=== PATIENT | female | born 1995 | race Caucasian/White ===

== ENCOUNTER 2021-02-12 15:46 | Emergency (ER) | payer OTHER, SELFPAY ==
[2021-02-12 13:56] VITALS: BMI 27.7
[2021-02-12 15:48] VITALS: BP 110/72; PULSE 100; RESP 16; TEMP 35.8; O2SAT 99; BMI 25.1
--- NOTE | 2021-02-12 16:23 | CT_ITS ---
STUDY: CT ABDOMEN AND PELVIS WITH CONTRAST REASON FOR EXAM: Female, 25 years old. RLQ pain -- IV PO Contrast RADIATION DOSAGE (If Supplied By Facility): CTDIvol = ( 12.6 ) mGy, DLP = ( 830.15 ) mGycm TECHNIQUE: Transaxial images were obtained from the dome of the diaphragm to the symphysis pubis without oral contrast. Oral and amp; IV Gastrografin and amp; 100mL Isovue-300 was administered. Sagittal and coronal images were reconstructed. Individualized dose optimization techniques were used for this CT. COMPARISON: None. FINDINGS: There is a 3 mm peripheral right lower lobe nodule likely a granuloma. The visualized portions of the heart are within normal limits. Normal liver. Status post cholecystectomy. No significant dilatation of the extrahepatic biliary system. Normal spleen. Normal pancreas. Normal bilateral adrenal glands. Normal right kidney. Normal left kidney. Normal visualized stomach. Mild ileus of the small intestine. Normal colon. The appendix is normal. There is right lower quadrant mesenteric adenopathy up to 1.5 cm. Mesenteric thickening is noted in the right lower quadrant around the cecum and proximal ascending colon. Normal abdominal aorta. Normal inferior vena cava. Normal retroperitoneum. Normal urinary bladder. Mild pelvic fluid. Normal abdominal wall. Normal osseous structures. CT/Abdomen/Pelvis WITH Contrast IMPRESSION: Mild ileus of the small intestine. There is right lower quadrant mesenteric adenopathy up to 1.5 cm. Mesenteric thickening is noted in the right lower quadrant around the cecum and proximal ascending colon. No CT evidence of appendicitis. Mild pelvic fluid. Electronically Signed: Derick Torres DO at 18:54 EDT Tel [phone], Service support ,
--- NOTE | 2021-02-12 16:24 | ED.VISSUMM ---
- ER Visit Summary Date of Service: 02/12/21 Chief Complaint: Abdominal pain History of Present Illness: The patient is a 25 F presenting with abdominal pain. Patient states this started approximately 1 week ago. She has had diarrhea 4-6 times per day for the past week. Denies blood in her stool. She denies nausea or vomiting today. She states she did initially have vomiting but that has since resolved. She had fever initially but that has also resolved. She states she had myalgias when she had the fever but that has improved. She continues to have abdominal pain and diarrhea. She has been taking Tylenol and ibuprofen at home. She has no known exposure to Covid. No sick contacts. She has history of previous cholecystectomy. Denies other complaints. Physical Examination: Vitals are stable. Patient is afebrile. Alert no acute distress. HEENT exam is unremarkable. Neck is supple. Lungs are clear and equal bilaterally. Heart is regular rate and rhythm. Abdomen is soft right lower quadrant tenderness with no guarding or rebound Extremities are unremarkable. Skin is warm and dry. Remainder of exam is unremarkable. Emergency Department Course and Treatment: Patient is given IV fluids, morphine, Zofran. CBC, chemistries unremarkable. Urinalysis unremarkable. hCG negative. Covid negative. CT abdomen pelvis shows mild ileus of the small intestine. There is right lower quadrant mesenteric adenopathy up to 1.5 cm. Mesenteric thickening is noted in the right lower quadrant around the cecum and proximal ascending colon. No CT evidence of appendicitis. Mild pelvic fluid. On reevaluation, patient is resting comfortably. She is given prescription for Bentyl and Zofran. Advised to follow-up with her primary care physician. Advised return to ED for worsening complaints. Disposition: Discharge home Impression: Abdominal pain, mesenteric adenitis This note was generated with [employer] dictation software. It may contain incorrect words, spelling, and punctuation that were not noted in review of the chart prior to signing ED Disposition - Plan for ED Patient: Instructions: ED Adenitis, Mesenteric Prescriptions: Dicyclomine HCl [Bentyl] 20 mg PO TIDAC #20 capsule Prescription Printed Ondansetron [Zofran Odt] 4 mg PO Q8H PRN PRN #10 tablet PRN Reason: Nausea Prescription Printed Referrals: Thien Garcia DO [Primary Care Provider] -
[2021-02-12] MEDS: 0.9% Normal Saline 1,000 ML 1000 ML IV (17:08)
[2021-02-12] MEDS: Ondansetron 4 MG/2 ML Vial IV (17:08)
[2021-02-12] MEDS: Morphine 4 MG/ML Syringe IV (17:08)
[2021-02-12 17:09] LABS: Bacteria 0 SEEN /hpf (None Seen); Red Blood Cells-Urine 0 SEEN /hpf (0-5); White Blood Cells 0 SEEN /hpf (0-5)
[2021-02-12 17:24] LABS: Absolute Neutrophil Count 2.9 X10^3/uL (2.0-7.7); Basophil# 0.03 X10^3/uL; Basophil% 0.6 % (0-1); Eosinophil# 0.04 X10^3/uL; Eosinophils% 0.8 % (0-5); Hematocrit 41.6 % (37-47); Hemoglobin 13.1 g/dL (12.0-15.0); Lymphocyte % 33.8 % (19-41); Mean Corp Hgb Conc 31.5 g/dL (32-36); Mean Corpuscular Hgb 27.4 pg (27.0-32.0); Monocyte# 0.51 X10^3/uL; Monocyte% 9.6 % (0-10); NRBC Flagged by Analyzer 0 % (0-5); Neutrophil # 2.93 X10^3/uL (2.7-7.7); Neutrophil % 54.8 % (47-70); Platelet Count 300 K/mm3 (150-450); RBC Distribution Width CV 12.4 % (11.6-14.6); Red Blood Count 4.78 M/mm3 (4.2-5.4); White Blood Count 5.3 K/mm3 (4.4-11.0)
[2021-02-12 17:37] LABS: Color, Urine Yellow (Yellow); Glucose, Dipstick Normal (Normal); Ketone-Dipstick Negative (Negative); Leukocyte Esterase-Dipstick 25 /ul (Negative); Nitrite-Dipstick Negative (Negative); Occult Blood-Urine Negative /ul (Negative); Protein-Dipstick 15 mg/dl (Negative); Urine Bilirubin Dipstick Negative (Negative); Urine Clarity Clear (Clear); Urine Urobilinogen Normal (Normal); Urine pH 6.5 (5.0 - 8.0)
[2021-02-12 17:41] LABS: ALB/GLOB Ratio 0.8 RATIO (0.9-2.4); AST(SGOT) 25 U/L (15-37); Alanine Aminotransfer ALT/SGPT 50 U/L (13-56); Albumin, Serum 3.3 g/dL (3.2-5.0); Alkaline Phosphatase 74 U/L (45-117); Anion Gap 4 (5-15); BUN 11 mg/dL (7-18); BUN/Creat Ratio 13.9 RATIO (10-20); Calcium,Total 9.3 mg/dL (8.5-10.1); Chloride 106 mmol/L (98-107); Creatinine, Serum 0.79 mg/dL (0.55-1.02); EST Glomerular Filtration Rate 93 mL/min (>60); Est Glom Filt Rate - Afr Amer 113 mL/min (>60); Estimated Creatinine Clearance 112.78 ml/min; Globulin 4.3 g/dL (2.2-4.2); Glucose 98 mg/dL (74-106); Potassium 3.5 mmol/L (3.5-5.1); Protein, Total 7.6 g/dL (6.4-8.2); Sodium Level 139 mmol/L (136-145)
[2021-02-12 17:42] LABS: Internal QC Validated? YES +Cl - CLEAR BKGD; Pregnancy, Serum, hCG Quali. NEGATIVE Negative
[2021-02-12 17:59] LABS: Mucous, Urine 1+ /hpf (<or=2+); Squamous Epithelial Cells - UA 0-5 SEEN /hpf (5-10)
--- NOTE | 2021-02-12 19:20 | ED.DEP ---
ED Disposition - Plan for ED Patient: Instructions: ED Adenitis, Mesenteric Prescriptions: Dicyclomine HCl [Bentyl] 20 mg PO TIDAC #20 capsule Prescription Printed Ondansetron [Zofran Odt] 4 mg PO Q8H PRN PRN #10 tablet PRN Reason: Nausea Prescription Printed Referrals: Thien Garcia DO [Primary Care Provider] -
== END 2021-02-12 19:32 | disposition home or self-care (01) ==
PROVIDERS: Emergency Provider Emergency Medicine; PCP Student in an Organized Health Care Education/Training Program
DX: R10.9 Unspecified abdominal pain (principal); I88.0 Nonspecific mesenteric lymphadenitis; K56.7 Ileus, unspecified; R19.7 Diarrhea, unspecified; M79.10 Myalgia, unspecified site; K21.9 Gastro-esophageal reflux disease without esophagitis; Z79.899 Other long term (current) drug therapy; Z90.49 Acquired absence of other specified parts of digestive tract
CPT/HCPCS: 74177; 80053; 81001; 84703; 85025; 87426; 96361; 96374; 96375; 99283; J7030; Q9967; J2405

== ENCOUNTER 2021-06-18 18:08 | Emergency (ER) | payer OTHER, SELFPAY ==
[2021-06-18 18:09] VITALS: BP 100/56; PULSE 144; RESP 16; TEMP 36.5; O2SAT 96; BMI 26.8
[2021-06-18 20:02] VITALS: BP 122/64; PULSE 86; RESP 16; O2SAT 100
--- NOTE | 2021-06-18 20:48 | CT_ITS ---
STUDY: CT ABDOMEN AND PELVIS WITH CONTRAST REASON FOR EXAM: Female, 25 years old. RLQ pain RADIATION DOSAGE (If Supplied By Facility): CTDIvol = ( 12.50 ) mGy, DLP = ( 825.08 ) mGycm TECHNIQUE: Transaxial images were obtained from the dome of the diaphragm to the symphysis pubis without oral contrast. Oral and amp; IV and amp; 100mL Isovue-370 was administered. Sagittal and coronal images were reconstructed. Individualized dose optimization techniques were used for this CT. COMPARISON: None. FINDINGS: There is minor interstitial thickening in left lower lobe.. The visualized portions of the heart are within normal limits. Normal liver. Gallbladder has been removed surgically.. Normal spleen. Normal pancreas. Normal bilateral adrenal glands. Normal right kidney. Normal left kidney. Normal visualized stomach. Nonspecific ileus... There is mild concentric thickening of the mcneil of the terminal ileum with slight narrowing of the lumen which may be on the basis of ileitis possibly Crohn''s disease. No evidence for acute appendicitis. Small pericecal nodes without laboratory stranding fat.. Normal abdominal aorta. Normal inferior vena cava. Normal retroperitoneum. Incompletely distended bladder. Normal abdominal wall. Normal osseous structures. CT/Abdomen/Pelvis W IV Cont ONLY IMPRESSION: Mild nonspecific ileus with inflammatory changes of the terminal ileum possibly on the basis of Crohn''s disease. No definitive evidence for acute appendicitis. Status post cholecystectomy Electronically Signed: Gilmer Lyn MD at 22:03 EDT , Service support ,
--- NOTE | 2021-06-18 20:49 | ED.VIS.GI ---
HPI HPI - GI History of Present Illness Chief Complaint: Abd Pain Narrative Narrative: 25-year-old female presenting with right lower quadrant pain. She states that she woke up this morning with pain and has been vomiting all day. Patient describes it as periumbilical and radiating to the right lower quadrant over the course of the day. She denies fever at home. She denies urinary complaints. She has no history of kidney stones. Patient states that she is currently on control as low suspicion for . Patient denies any intra-abdominal surgeries in the past. She denies constipation or diarrhea. She has history of possible Crohn's and is scheduled to follow-up with her a colonoscopy next week. She states she has not been previously diagnosed with this and they are trying to rule this out. [facility] Medical History Arthritis Gallbladder Removed Knee pain Shoulder pain Stomach ulcer Home Medications Saccharomyces boulardii 250 mg capsule 250 mg PO BID 02/12/21 [History Last Taken Unknown] fexofenadine 60 mg tablet 60 mg PO BID 02/12/21 [History Last Taken Unknown] norgestimate 0.25 mg-ethinyl estradiol 35 mcg tablet 1 tablet PO DAILY 02/12/21 [History Last Taken Unknown] ondansetron 4 mg PO Q8H PRN PRN #10 tablet 02/12/21 [Rx Last Taken Unknown] pantoprazole 20 mg tablet,delayed release 20 mg PO DAILY 02/12/21 [History Last Taken Unknown] ondansetron HCl [Zofran] 4 mg PO Q8H PRN #12 tab 06/18/21 [Rx Last Taken Unknown] oxycodone-acetaminophen [Percocet] 1 tab PO Q6H 3 Days #12 tab 06/18/21 [Rx Last Taken Unknown] Allergy/AdvReac Type Severity Reaction Status Date / Time naproxen Allergy Severe Airway Verified 06/18/21 18:11 swelling, lips swelling omeprazole [From Prilosec] Allergy Mild Diarrhea Verified 06/18/21 18:11 Family History Father Cancer Skin Grandmother Lymphoma Grandfather Cancer Diabetes Grandmother Thyroid disorder Surgical History H/O left knee surgery Hx of tonsillectomy Social History Smoking Status: Never smoker alcohol intake: never ROS ROS ED Constitutional Constitutional ED: Denies chills or fever(s) ENT ENT ED: Denies rhinorrhea or sore throat Cardiovascular Cardiovascular: Denies chest pain or palpitations Respiratory/Chest Respiratory/Chest: Denies cough, dyspnea or sputum Gastrointestinal Gastrointestinal: Reports abdominal pain, nausea and vomiting; Denies constipation or diarrhea Genitourinary Genitourinary ED: Denies dysuria or hematuria Musculoskeletal Musculoskeletal: Reports back pain; Denies arthralgias, myalgias or neck pain Integumentary Denies rash Neurologic Neurologic: Denies headache(s) or paresthesias Psychiatric Psychiatric: Denies anxiety or depression EXAM Physical Exam Const Vital Signs: 06/18/21 18:09 06/18/21 20:02 Temperature 97.7 F L Temperature Source Temporal Pulse Rate 144 H 86 Respiratory Rate 16 16 Blood Pressure 100/56 L 122/64 H Blood Pressure Mean 70 83 Pulse Ox 96 100 Oxygen Delivery Method Room Air Room Air Positive well nourished General Appearance ED: NAD; Negative for pallor HEENT Reports moist mucous membranes normocephalic and atraumatic Eyes PERRL and EOMs intact bilaterally General Eye ED: Negative for pale conjunctiva or scleral icterus Resp normal respiratory effort and clear to auscultation bilaterally Cardio regular rhythm Rate: tachycardic GI non-tender Palpation: soft and tender RLQ Extremity full ROM General Extremety ED: Negative for edema or tenderness General Extremity: Negative for edema Neuro Sensorium / Orientation: alert, oriented to person, oriented to place and oriented to time Psych mental status grossly normal and thought process normal Skin General Skin Exam: Negative for jaundice or pallor Lesions: no lesions Rashes: no rashes MDM MDM MDM Narrative Medical decision making narrative: Patient presenting with abdominal pain which is at all day. Patient states that she has a presumptive diagnosis of Crohn's disease and she supposed to follow-up with her GI doctor on Wednesday for colonoscopy. Patient given IV fluids, morphine, Zofran. I did check blood work which was all normal. Urinalysis is negative for infection but does show ketones of 150. Initial heart rate was 144 and is now 86. Initial blood pressure 100/56 is now 122/64. Patient requested more pain medication was given another [address] of the abdomen pelvis shows mild nonspecific ileus with inflammatory changes of the terminal ileum possibly on the basis of Crohn''s disease. I attempted to contact the patient's GI doctor however after calling the associated with him he was unable to be contacted. In the medical system it does show that he is at [facility] however calling summa he is not in their system either. Given patient's symptoms I will start her on pain medication and nausea medication at home. I will withhold steroids at this time. Patient will follow up with her GI doctor for colonoscopy on Wednesday. She is given precautions. Impression: 1. Abdominal pain 2. Nausea vomiting Lab Data Labs: Laboratory Results - last 24 hr 06/18/21 06/18/21 06/18/21 19:50 19:50 21:20 WBC 7.9 RBC 5.52 H Hgb 15.0 Hct 47.3 H MCV 85.7 MCH 27.2 MCHC 31.7 L RDW Std Deviation 38.6 RDW Coeff of Main 12.3 Plt Count 252 MPV 9.3 Immature Gran % (Auto) 0.300 Neut % (Auto) 88.8 H Lymph % (Auto) 4.4 L [place] % (Auto) 6.1 Eos % (Auto) 0.1 Baso % (Auto) 0.3 Absolute Neuts (auto) 7.1 Absolute Lymphs (auto) 0.35 L Nucleated RBC % 0 Differential Comment Platelet Estimate ADEQUATE RBC Morphology NORM C+C Sodium 139 Potassium 3.3 L Chloride 104 Carbon Dioxide 28.0 Anion Gap 7 BUN 20 H Creatinine 0.82 Estim Creat Clear Calc 108.65 Est GFR (MDRD) Af Amer 108 Est GFR (MDRD) Non-Af 89 BUN/Creatinine Ratio 24.4 H Glucose 97 Calcium 9.2 Total Bilirubin 0.50 AST 36 ALT 35 Alkaline Phosphatase 56 Total Protein 8.1 Albumin 4.0 Globulin 4.1 Albumin/Globulin Ratio 1.0 Lipase 63 L Urine Color Yellow Urine Clarity Clear Urine pH 6.0 Ur Specific [place] 1.020 Urine Protein 15 H Urine Glucose (UA) Normal Urine Ketones 150 A* Urine Occult Blood 150 H Urine Nitrite Negative Urine Bilirubin Negative Urine Urobilinogen Normal Ur Leukocyte Esterase Negative Urine RBC 0 SEEN Urine WBC 0 SEEN Ur Squamous Epith Cells 0-5 SEEN Amorphous Sediment 1+ Urine Bacteria 1+ Urine Mucus 0 SEEN Urine Test Negative Radiography Diagnostic Testing: Radiology Impression Abdomen/Pelvis CT 06/18/21 20:48 IMPRESSION: Mild nonspecific ileus with inflammatory changes of the terminal ileum possibly on the basis of Crohn''s disease. No definitive evidence for acute appendicitis. Status post cholecystectomy Electronically Signed: Gilmer Lyn MD at 22:03 EDT , Service support , Discharge Plan Triage Chief Complaint: Abd Pain ED Provider: Tod Wu Dx/Rx/DC Orders Instructions: ED Abdominal Pain Unkn Cause Fem, ED Crohn's Disease Prescriptions: New oxycodone-acetaminophen [Percocet] 5-325 mg tablet 1 tab PO Q6H 3 Days Qty: 12 RF: 0 ondansetron HCl [Zofran] 4 mg tablet 4 mg PO Q8H PRN (Reason: nausea and vomiting) Qty: 12 RF: 0 No Action Saccharomyces boulardii [Digest Probiotic (S.boulardii)] 250 mg capsule 250 mg PO BID RF: 0 fexofenadine [Olga Allergy] 60 mg tablet 60 mg PO BID RF: 0 pantoprazole 20 mg tablet,delayed release (DR/EC) 20 mg PO DAILY RF: 0 norgestimate-ethinyl estradiol [Sprintec (28)] 0.25-35 mg-mcg tablet 1 tablet PO DAILY RF: 0 ondansetron 4 MG tablet 4 mg PO Q8H PRN PRN (Reason: Nausea) Qty: 10 RF: 0 Primary Care Provider: Thien aGrcia Referrals: Thien Garcia DO [Primary Care Provider] - Disposition Disposition: Home, Self Care
[2021-06-18 20:56] LABS: Absolute Lymphocyte Count 0.35 X10^3/uL (0.83-4.51); Absolute Neutrophil Count 7.1 X10^3/uL (2.0-7.7); Basophil# 0.02 X10^3/uL; Basophil% 0.3 % (0-1); Eosinophil# 0.01 X10^3/uL; Eosinophils% 0.1 % (0-5); Hematocrit 47.3 % (37-47); Lymphocyte # 0.35 X10^3/ul (0.83-4.51); Lymphocyte % 4.4 % (19-41); Mean Corp Hgb Conc 31.7 g/dL (32-36); Mean Corpuscular Hgb 27.2 pg (27.0-32.0); Mean Corpuscular Volume 85.7 fL (81-99); Mean Platelet Vol. 9.3 fl (6.2-12.0); Monocyte# 0.48 X10^3/uL; Monocyte% 6.1 % (0-10); NRBC Flagged by Analyzer 0 % (0-5); Neutrophil # 7.05 X10^3/uL (2.7-7.7); Neutrophil % 88.8 % (47-70); POSITIVE DIFFERENTIAL YES; Platelet Count 252 K/mm3 (150-450); RBC Distribution Width CV 12.3 % (11.6-14.6); RBC Distribution Width SD 38.6 fl (35.1-43.9); Red Blood Count 5.52 M/mm3 (4.2-5.4); White Blood Count 7.9 K/mm3 (4.4-11.0)
[2021-06-18 20:58] LABS: Differential Indicated SCAN CRITERIA MET
[2021-06-18 21:08] LABS: AST(SGOT) 36 U/L (15-37); Alanine Aminotransfer ALT/SGPT 35 U/L (13-56); Alkaline Phosphatase 56 U/L (45-117); Anion Gap 7 (5-15); BUN 20 mg/dL (7-18); BUN/Creat Ratio 24.4 RATIO (10-20); Calcium,Total 9.2 mg/dL (8.5-10.1); Chloride 104 mmol/L (98-107); Creatinine, Serum 0.82 mg/dL (0.55-1.02); EST Glomerular Filtration Rate 89 mL/min (>60); Est Glom Filt Rate - Afr Amer 108 mL/min (>60); Estimated Creatinine Clearance 108.65 ml/min; Globulin 4.1 g/dL (2.2-4.2); Glucose 97 mg/dL (74-106); Lipase 63 U/L (73-393); Potassium 3.3 mmol/L (3.5-5.1); Protein, Total 8.1 g/dL (6.4-8.2); Sodium Level 139 mmol/L (136-145)
[2021-06-18] MEDS: Morphine 4 MG/ML Syringe IV ×2 (21:15→22:58)
[2021-06-18] MEDS: Ondansetron 4 MG/2 ML Vial IV (21:15)
[2021-06-18] MEDS: 0.9% Normal Saline 1,000 ML 1000 ML IV (21:16)
[2021-06-18 21:18] LABS: Platelet Estimate ADEQUATE (ADEQ); Red Cell Morphology NORM C+C NORMAL (NORM C&C)
[2021-06-18 21:25] LABS: Mucous, Urine 0 SEEN /hpf (<or=2+); Red Blood Cells-Urine 0 SEEN /hpf (0-5); White Blood Cells 0 SEEN /hpf (0-5)
[2021-06-18 21:27] LABS: Color, Urine Yellow (Yellow); Glucose, Dipstick Normal (Normal); Leukocyte Esterase-Dipstick Negative /ul (Negative); Nitrite-Dipstick Negative (Negative); Occult Blood-Urine 150 /ul (Negative); Protein-Dipstick 15 mg/dl (Negative); Urine Bilirubin Dipstick Negative (Negative); Urine Clarity Clear (Clear); Urine Urobilinogen Normal (Normal)
[2021-06-18 21:32] LABS: Ketone-Dipstick 150 mg/dl (Negative)
[2021-06-18 21:33] LABS: Amorphous Sediment 1+; Bacteria 1+ /hpf (None Seen); Internal QC Validated? YES +Cl - CLEAR BKGD; Squamous Epithelial Cells - UA 0-5 SEEN /hpf (5-10)
[2021-06-18 21:34] LABS: Pregnancy, Urine Negative Negative
[2021-06-18 23:07] VITALS: BP 123/68; PULSE 68; RESP 16; O2SAT 98
== END 2021-06-18 23:08 | disposition home or self-care (01) ==
PROVIDERS: Emergency Provider Student in an Organized Health Care Education/Training Program; PCP Student in an Organized Health Care Education/Training Program
DX: R10.31 Right lower quadrant pain (principal); R11.2 Nausea with vomiting, unspecified; K56.7 Ileus, unspecified; M19.90 Unspecified osteoarthritis, unspecified site; Z87.19 Personal history of other diseases of the digestive system; Z90.49 Acquired absence of other specified parts of digestive tract; Z79.3 Long term (current) use of hormonal contraceptives
CPT/HCPCS: 74177; 80053; 81001; 81025; 83690; 85025; 96374; 96375; 96376; 99283; J7030; Q9967; A4216; J2405